=== PATIENT | female | born 1930 | race Caucasian/White ===

== ENCOUNTER 2019-03-24 12:48 | Inpatient (IN) | payer MEDICARE, BC ==
[~2019-03-24] VITALS: Ht 157.5 cm; Wt 57.2 kg
--- NOTE | 2019-03-24 13:00 | NUR ---
patient BIBRA came in due to altered than usual. On room air, breathing evenly and unlabored. Kept comfortable, will continue to monitor accordingly.
[2019-03-24 13:18] LABS: BASOPHILS # (AUTO) 0.1 /CMM (0.0-0.2); BASOPHILS % (AUTO) 0.8 % (0.0-2.0); EOSINOPHILS % (AUTO) 0.8 % (0.0-6.0); HEMATOCRIT 39 % (33-45); HEMOGLOBIN 12.9 g/dL (11.5-14.8); LYMPHOCYTES # (AUTO) 1.7 /CMM (0.8-4.8); LYMPHOCYTES % (AUTO) 15.7 % (20.0-44.0); MEAN CORPUSCULAR HGB CONC 33 g/dl (31.0-36.0); MEAN CORPUSCULAR VOLUME 95 fL (82-100); MONOCYTES # (AUTO) 0.7 /CMM (0.1-1.30); MONOCYTES % (AUTO) 6.3 % (2.0-12.0); NEUTROPHILS # (AUTO) 8.5 /CMM (1.8-8.9); NEUTROPHILS % (AUTO) 76.4 % (43.0-81.0); PLATELET COUNT (AUTO) 316 /CMM (150-450); RED BLOOD CELL COUNT(AUTO) 4.08 MIL/uL (4.0-5.2); WHITE BLOOD COUNT (AUTO) 11.1 K/uL (4.3-11.0)
[2019-03-24 13:23] LABS: CALCIUM, SERUM 9.5 mg/dL (8.5-10.1); CARBON DIOXIDE 31 mmol/L (21-32); CHLORIDE 103 mmol/L (98-107); CREATININE 1.2 mg/dL (0.6-1.3); GLUCOSE 111 mg/dL (74-106); POTASSIUM 3.5 mmol/L (3.5-5.1); SODIUM SERUM 142 mmol/L (136-145); UREA NITROGEN, BLOOD 27 mg/dL (7-18)
[2019-03-24 13:30] LABS: ALANINE AMINOTRANSFERASE 18 U/L (12-78); ALBUMIN 3.2 g/dL (3.4-5.0); ALKALINE PHOSPHATASE 109 U/L (46-116); ASPARTATE AMINOTRANSFERASE 19 U/L (15-37); BILIRUBIN,DIRECT 0.2 mg/dL (0.0-0.2); BILIRUBIN,TOTAL 0.7 mg/dL (0.2-1.0); TOTAL PROTEIN, SERUM 7.2 g/dL (6.4-8.2)
[2019-03-24 13:31] LABS: ACETAMINOPHEN 0 ug/ml (10-30); ALCOHOL, BLOOD < 3 mg/dL (0-0); SALICYLATE 0.9 mg/dL (2.8-20.0)
[2019-03-24] MEDS ORDERED: METO25TA6 PO (13:48)
[2019-03-24] MEDS ORDERED: AMLO5TAB9 PO (13:48)
[2019-03-24] MEDS ORDERED: DOCU100C36 PO (13:48)
[2019-03-24] MEDS ORDERED: ASPI-1169 PO (13:48)
[2019-03-24] MEDS ORDERED: LEVO75TA7 PO (13:48)
[2019-03-24] MEDS ORDERED: RANI150T8 PO (13:48)
[2019-03-24] MEDS ORDERED: CLON0.1T PO (13:48)
--- NOTE | 2019-03-24 14:03 | NUR ---
urine collected and sent to lab
[2019-03-24 14:09] LABS: BILIRUBIN,URINE SMALL (NEGATIVE); BLOOD, URINE Trace-intact Ery/uL (NEGATIVE); COLOR,URINE Yellow (YELLOW); KETONES,URINE Trace (NEGATIVE); LEUKOCYTE ESTERASE ,URINE Large (NEGATIVE); NITRITE, URINE Negative (NEGATIVE); PROTEIN,URINE 100 mg/dl (NEGATIVE); UGLUCOSE Negative (NEGATIVE)
[2019-03-24 14:10] LABS: THYROID STIMULATING HORMONE 3.114 uIU/mL (0.358-3.74)
[2019-03-24 14:10] LABS: APPEARANCE,URINE CLOUDY (CLEAR)
[2019-03-24 14:11] LABS: BACTERIA,URINE 2+ /HPF (None Seen); SQUAMOUS EPITHELIAL CELL,UR Moderate /HPF (None Seen); WBC,URINE 21-50 /HPF (0-3)
--- NOTE | 2019-03-24 14:18 | NUR ---
CALLED [facility], PAGED JEAN BENNETT
[2019-03-24] MEDS ORDERED: CEFTRIAXONE 1 G in IV D5W 50 ML IV STA (14:24)
[2019-03-24] MEDS ORDERED: CEFTRIAXONE 1GM BAG (ER ONLY) 50 ML IV ONE (14:37)
[2019-03-24] MEDS ORDERED: IV NS 0.9% 1,000 ML IV PRN (15:39)
--- NOTE | 2019-03-24 15:40 | NUR ---
report given to Elif CASTANON for deep.
--- NOTE | 2019-03-24 15:53 | NUR ---
wheeled patient to room 311-1 Liam ramos RN at bedside to assume care.
[2019-03-24 16:00] VITALS: BP 164/72
[2019-03-24] MEDS ORDERED: MAG HYDROX/AL HYDROX/SIMETH 30 ML UDC PO PRN (16:00)
[2019-03-24] MEDS ORDERED: MAGNESIUM HYDROXIDE 30 ML UDC PO PRN (16:00)
[2019-03-24] MEDS ORDERED: DOCUSATE SODIUM 100 MG CAPSULE PO PRN (16:00)
[2019-03-24] MEDS ORDERED: Z GUARD REMEDY 2 OZ OINT TP PRN (16:00)
[2019-03-24] MEDS ORDERED: ONDANSETRON HCL/PF 4 MG/2 ML VIAL IVP PRN (16:00)
[2019-03-24 16:30] VITALS: BP 164/79
[2019-03-24] MEDS: HYDROCODONE/APAP 5/325MG 1 EACH TABLET PO PRN (17:00)
[2019-03-24] MEDS ORDERED: METOPROLOL TARTRATE 25 MG TABLET PO SCH (17:00)
--- NOTE | 2019-03-24 19:42 | NUR ---
TELE/RN OPENING NOTES RECEIVED PATIENT IN BED, RESTING COMFORTABLY IN BED, RESPIRATIONS EVEN AND UNLABORED, SKIN WARM TO TOUCH. CAN RESPOND TO SIMPLE QUESTIONS, ABLE TO STATE NAME AND BIRTHDAY BUT NOT DATE. OBSERVE CALM AND COOPERATIVE, TO MONITOR ANY CHANGES WILL MONITOR. BED LOCKED, CALL LIGHTS WITHIN REACH.
--- NOTE | 2019-03-24 19:44 | NUR ---
TELE/RN NOTES IV ON LEFT AC RUNNING AND SITE W/ NO S/S OF INFILTRATION.
[2019-03-24 19:58] VITALS: BP 132/64
[2019-03-24 20:00] VITALS: BP 132/64
[2019-03-24] MEDS: FAMOTIDINE (20 MG) 20 MG TABLET PO SCH (20:43)
[2019-03-24] MEDS: ACETAMINOPHEN 325 MG TABLET PO PRN (21:23)
--- NOTE | 2019-03-24 21:30 | NUR ---
TELE/RN NOTES PATIENT AWAKE, ALERT X3, ABLE TO STATE NAME AND WHERE SHE IS. FAMILY AT BEDSIDE. REPORTED PAIN IN LEFT ANKLE, ICE PROVIDED IN SITE AND TYLENOL GIVEN WITH APPLE SAUCE. PUDDING REQUESTED. ABLE TO TOLERATE .
[2019-03-25] VITALS: BP 121/60
[2019-03-25 04:00] VITALS: BP_SYST 107; BP_SYST 171; BP_DIAS 67; BP_DIAS 76
[2019-03-25] MEDS: HYDROCODONE/APAP 5/325MG 1 EACH TABLET PO PRN ×3 (04:36→19:09)
--- NOTE | 2019-03-25 04:48 | NUR ---
TELE/RN NOTES PATIENT VITAL SIGNS SBP ELEVATED TO 170, REPORTED PAIN SEVERE, NEEDED NORCO 5-325 MG PO GIVEN WITH APPLE SAUCE WILL MONITOR RELIEF AND COMFORT.
[2019-03-25 06:37] LABS: CARBON DIOXIDE 30 mmol/L (21-32); CHLORIDE 104 mmol/L (98-107); CREATININE 0.8 mg/dL (0.6-1.3); GLUCOSE 117 mg/dL (74-106); MAGNESIUM 2.1 mg/dL (1.8-2.4); PHOSPHORUS 3.9 mg/dL (2.5-4.9); POTASSIUM 2.9 mmol/L (3.5-5.1); SODIUM SERUM 142 mmol/L (136-145); UREA NITROGEN, BLOOD 17 mg/dL (7-18)
[2019-03-25 06:43] LABS: BASOPHILS # (AUTO) 0.1 /CMM (0.0-0.2); EOSINOPHILS % (AUTO) 2.8 % (0.0-6.0); HEMATOCRIT 41 % (33-45); HEMOGLOBIN 13.5 g/dL (11.5-14.8); LYMPHOCYTES # (AUTO) 1.5 /CMM (0.8-4.8); LYMPHOCYTES % (AUTO) 18.9 % (20.0-44.0); MEAN CORPUSCULAR HGB CONC 33 g/dl (31.0-36.0); MEAN CORPUSCULAR VOLUME 95 fL (82-100); MONOCYTES # (AUTO) 0.6 /CMM (0.1-1.30); MONOCYTES % (AUTO) 7.2 % (2.0-12.0); NEUTROPHILS # (AUTO) 5.7 /CMM (1.8-8.9); NEUTROPHILS % (AUTO) 70.1 % (43.0-81.0); PLATELET COUNT (AUTO) 329 /CMM (150-450); RED BLOOD CELL COUNT(AUTO) 4.28 MIL/uL (4.0-5.2); WHITE BLOOD COUNT (AUTO) 8.1 K/uL (4.3-11.0)
--- NOTE | 2019-03-25 06:52 | NUR ---
311-1TELE/RN PATIENT SLEPT FEW HOURS, RESPIRATIONS EVEN AND UNLABORED, REPOSITONED AND TURNES, PAIN MEDIATION FIVEN NORCO 5-325 MG FOR SEVERE PAIN. REQUIRE EXTENSIVE ASSISTANCE FOR SAFEY, WILL MONITOR.
[2019-03-25 07:16] LABS: CHOLESTEROL 188 mg/dL (<200); HDL CHOLESTEROL 55 mg/dL (40-60); LDL 113 mg/dL (0-99); THYROID STIMULATING HORMONE 4.508 uIU/mL (0.358-3.74); TRIGLYCERIDES 102 mg/dL (30-150)
[2019-03-25 08:00] VITALS: BP 159/75
--- NOTE | 2019-03-25 08:00 | NUR ---
COASTAL TUG MATE NOTES PT IN BED, AWAKE, ALERT AND ORIENTED, NO COMPLAINT OF PAIN, RESPIRATIONS NORMAL, CAREGIVER AT BEDSIDE, KEPT COMFORTABLE IN BED, CALL LIGHT WITHIN REACH.
[2019-03-25] MEDS: POTASSIUM CHLORIDE 20 MEQ TAB.PRT.SR PO SCH ×4 (08:50→11:15)
[2019-03-25] MEDS: FAMOTIDINE (20 MG) 20 MG TABLET PO SCH ×2 (08:50→20:21)
[2019-03-25] MEDS: LEVOTHYROXINE SODIUM 75 MCG TABLET PO SCH (08:50)
[2019-03-25] MEDS ORDERED: ASPIRIN 81 MG TAB.CHEW PO SCH (09:00)
[2019-03-25] MEDS ORDERED: AMLODIPINE BESYLATE 5 MG TABLET PO SCH (09:00)
[2019-03-25] MEDS ORDERED: CLONIDINE HCL 0.1 MG TABLET PO SCH ×2 (09:00→11:30)
[2019-03-25] MEDS ORDERED: CLOPIDOGREL BISULFATE 75 MG TABLET PO SCH (09:00)
[2019-03-25] MEDS ORDERED: FAMOTIDINE (20 MG) 20 MG TABLET PO SCH (09:00)
[2019-03-25] MEDS: ENOXAPARIN SODIUM 40 MG/0.4 ML DISP.SYRIN SQ SCH (09:02)
--- NOTE | 2019-03-25 13:00 | NUR ---
RN MS NOTES PT IN BED, AWAKE, ALERT, AND VERBALLY RESPONSIVE, NOT IN DISTRESS, CAREGIVER AT BEDSIDE, PAIN MEDS GIVEN FOR PAIN MANAGEMENT, SEEN BY JEAN TOM AND DR. SHERIDAN, ALSO SEEN AND ASSESSED BY SPEECH THERAPIST AND PHYSICAL THERAPIST.
[2019-03-25] MEDS: AMLODIPINE BESYLATE 5 MG TABLET PO SCH (13:09)
--- NOTE | 2019-03-25 13:23 | NUR ---
RN MS NOTES LAST DOSE OF KDUR NON ADMIN, TIMED OUT FROM [facility]MN[facility], LAST DOSE REORDERED.
[2019-03-25] MEDS ORDERED: POTASSIUM CHLORIDE 20 MEQ TAB.PRT.SR PO SCH (14:00)
[2019-03-25] MEDS ORDERED: CEFTRIAXONE 1 G in IV D5W 50 ML IV SCH (16:00)
--- NOTE | 2019-03-25 19:00 | NUR ---
RN MS NOTES PT IN BED, AWAKE, ALERT AND ORIENTED, PAIN MEDS GIVEN FOR PAIN MANAGEMENT, TOLERATING CURRENT DIET WELL, IV FLUIDS INFUSING WELL, CALL LIGHT WITHIN REACH, KEPT CLEAN AND DRY, ALL NEEDS ATTENDED.
[2019-03-25 20:00] VITALS: BP 152/88
[2019-03-25] MEDS: METOPROLOL TARTRATE 25 MG TABLET PO SCH (20:21)
--- NOTE | 2019-03-25 20:31 | NUR ---
Left message to patient son requesting call call to discuss dc planning options. Spoke with caregiver Iniguez who was at bedside. Patient lives locally with her son Marcos in a two story home with her bedroom on the first floor. She ambulates with a walker and sometimes hand held assist. She has caregiver everyday for 10-12hr/day that provides assistance with adl's. Has adequate DME: walker,shower chair commode, raised toilet seat and wheelchair. She is currently on service with [facility] [phone]. Patient pcp is affiliated with [facility]. Addendum: 03/25/19 at 2030 by EBONIE GAO RN Amended: Links added.
[2019-03-26] VITALS: BP_SYST 148; BP_DIAS 57; BP_DIAS 63; BP_DIAS 78
[2019-03-26] MEDS: IV NS 0.9% 1,000 ML IV PRN ×2 (03:48→14:53)
[2019-03-26 04:00] VITALS: BP 148/78
[2019-03-26 06:28] LABS: BASOPHILS % (AUTO) 0.8 % (0.0-2.0); EOSINOPHILS % (AUTO) 3.7 % (0.0-6.0); HEMATOCRIT 40 % (33-45); HEMOGLOBIN 13.4 g/dL (11.5-14.8); LYMPHOCYTES # (AUTO) 1.8 /CMM (0.8-4.8); LYMPHOCYTES % (AUTO) 28.5 % (20.0-44.0); MEAN CORPUSCULAR HGB CONC 34 g/dl (31.0-36.0); MEAN CORPUSCULAR VOLUME 94 fL (82-100); MONOCYTES # (AUTO) 0.5 /CMM (0.1-1.30); MONOCYTES % (AUTO) 7.4 % (2.0-12.0); NEUTROPHILS # (AUTO) 3.7 /CMM (1.8-8.9); NEUTROPHILS % (AUTO) 59.6 % (43.0-81.0); PLATELET COUNT (AUTO) 313 /CMM (150-450); WHITE BLOOD COUNT (AUTO) 6.2 K/uL (4.3-11.0)
--- NOTE | 2019-03-26 06:32 | NUR ---
RN NOTES PATIENT IS ALERT AND AWAKE, STABLE ON ROOM AIR, COMPLAINING OF LEFT KNEE PAIN, NO FRACTURE PER XRAY, RECEIVED NORCO WITH ADEQUATE RELIEF, IVF AT 100 ML/HR, NEURO CONSULT AND ST EVAL DONE, FOR PT/OT, PAIN MANAGEMENT
[2019-03-26 06:51] LABS: ALANINE AMINOTRANSFERASE 24 U/L (12-78); ALKALINE PHOSPHATASE 102 U/L (46-116); ASPARTATE AMINOTRANSFERASE 19 U/L (15-37); BILIRUBIN,TOTAL 0.5 mg/dL (0.2-1.0); CALCIUM, SERUM 8.8 mg/dL (8.5-10.1); CARBON DIOXIDE 22 mmol/L (21-32); CHLORIDE 106 mmol/L (98-107); CREATININE 0.7 mg/dL (0.6-1.3); GLUCOSE 98 mg/dL (74-106); MAGNESIUM 1.8 mg/dL (1.8-2.4); PHOSPHORUS 2.8 mg/dL (2.5-4.9); POTASSIUM 3.6 mmol/L (3.5-5.1); SODIUM SERUM 142 mmol/L (136-145); TOTAL PROTEIN, SERUM 6.9 g/dL (6.4-8.2); UREA NITROGEN, BLOOD 14 mg/dL (7-18)
--- NOTE | 2019-03-26 07:27 | NUR ---
TELE/RN OPENING NOTE PATIENT IN BED IN STABLE CONDITION. A/O X 1-2. NO SIGNS OF ACUTE DISTRESS. NO COMPLAIN OF PAIN OR DISCOMFORT. ON TELE MONITOR NOTED WITH SR WITH RATE OF 74. ALL NEEDS ATTENDED TO. CALL LIGHT WITHIN REACH. WILL CONTINUE TO MONITOR TO ENSURE SAFETY.
[2019-03-26 08:00] VITALS: BP 174/91
[2019-03-26] MEDS: ENOXAPARIN SODIUM 40 MG/0.4 ML DISP.SYRIN SQ SCH (08:48)
[2019-03-26] MEDS: LEVOTHYROXINE SODIUM 75 MCG TABLET PO SCH (08:48)
[2019-03-26] MEDS: CLOPIDOGREL BISULFATE 75 MG TABLET PO SCH (08:48)
[2019-03-26] MEDS: ASPIRIN 81 MG TAB.CHEW PO SCH (08:48)
[2019-03-26] MEDS: FAMOTIDINE (20 MG) 20 MG TABLET PO SCH ×2 (08:48→20:36)
[2019-03-26] MEDS: POTASSIUM CHLORIDE 20 MEQ TAB.PRT.SR PO SCH ×3 (08:48→11:47)
[2019-03-26] MEDS: METOPROLOL TARTRATE 25 MG TABLET PO SCH ×2 (08:49→20:36)
[2019-03-26] MEDS: AMLODIPINE BESYLATE 5 MG TABLET PO SCH (08:49)
[2019-03-26] MEDS ORDERED: VALSARTAN 80 MG TABLET PO SCH (09:00)
[2019-03-26] MEDS: MEROPENEM 500 MG in IV NS 0.9% 50 ML IV SCH ×2 (12:16→20:35)
--- NOTE | 2019-03-26 14:12 | NUR ---
MS/RN BISACODYL PER RECTUM HELD SECONDARY TO PER PATIENT CAREGIVER, PATIENT HAD B.M. AFTER SEEN BY NEGRO PENA AND NO NEED OF SUPPOSITORY AT THIS TIME.
[2019-03-26] MEDS ORDERED: BISACODYL SUPP (10 MG) 10 MG/SUPP.RECT SUPP.RECT RC ONE (14:30)
[2019-03-26 16:00] VITALS: BP 154/72
[2019-03-26] MEDS: DOCUSATE SODIUM 100 MG CAPSULE PO SCH (16:03)
[2019-03-26] MEDS: HYDROCODONE/APAP 5/325MG 1 EACH TABLET PO PRN (16:04)
--- NOTE | 2019-03-26 18:04 | NUR ---
MS/RN CLOSING NOTE PATIENT IN BED IN STABLE CONDITION. A/O X 2-3. NO SIGNS OF ACUTE DISTRESS. NO COMPLAIN OF PAIN OR DISCOMFORT. ALL NEEDS ATTENDED TO. FAMILY CAREGIVER AT BEDSIDE. CALL LIGHT WITHIN REACH. WILL ENDORSE TO NEXT SHIFT FOR CONTINUITY OF CARE.
--- NOTE | 2019-03-26 19:11 | NUR ---
MS RN OPENING NOTES: RECEIVED PATIENT RESTING COMFORTABLY IN BED, ALERT, ORIENTED X3. NOT IN RESPIRATORY DISTRESS. DIRECTOR OF MEDICAL EDUCATION AT THE BEDSIDE. BED ALARM ON.
[2019-03-26 20:00] VITALS: BP 158/86
[2019-03-26] MEDS ORDERED: ATORVASTATIN 40 MG TABLET PO SCH (22:00)
[2019-03-27] MEDS: IV NS 0.9% 1,000 ML IV PRN (01:10)
[2019-03-27] MEDS: HYDROCODONE/APAP 5/325MG 1 EACH TABLET PO PRN (01:47)
[2019-03-27] MEDS: MEROPENEM 500 MG in IV NS 0.9% 50 ML IV SCH ×3 (04:18→20:53)
--- NOTE | 2019-03-27 06:38 | NUR ---
MS RN CLOSING NOTES: PATIENT IS RESTING COMFORTABLY IN BED. HAD BM THIS MORNING. INCONTINENT. KEPT PATIENT CLEAN AND DRY. MEDICATED WITH NORCO 1TAB PO X1, EFFECTIVE. NO ACUTE EVENTS OVERNIGHT. AFEBRILE. HEMODYNAMICS AND RESPIRATORY STATUS ARE STABLE. CONFUSED. BED ALARM ON AT ALL TIMES. BED IN LOW AND LOCKED POSITION.
[2019-03-27 06:42] LABS: BASOPHILS # (AUTO) 0.1 /CMM (0.0-0.2); BASOPHILS % (AUTO) 0.7 % (0.0-2.0); EOSINOPHILS % (AUTO) 2.8 % (0.0-6.0); HEMATOCRIT 41 % (33-45); HEMOGLOBIN 13.7 g/dL (11.5-14.8); LYMPHOCYTES # (AUTO) 1.7 /CMM (0.8-4.8); LYMPHOCYTES % (AUTO) 17.4 % (20.0-44.0); MEAN CORPUSCULAR HGB CONC 34 g/dl (31.0-36.0); MEAN CORPUSCULAR VOLUME 94 fL (82-100); MONOCYTES # (AUTO) 0.5 /CMM (0.1-1.30); MONOCYTES % (AUTO) 5.7 % (2.0-12.0); NEUTROPHILS # (AUTO) 7.1 /CMM (1.8-8.9); NEUTROPHILS % (AUTO) 73.4 % (43.0-81.0); PLATELET COUNT (AUTO) 354 /CMM (150-450); RED BLOOD CELL COUNT(AUTO) 4.35 MIL/uL (4.0-5.2); WHITE BLOOD COUNT (AUTO) 9.6 K/uL (4.3-11.0)
[2019-03-27 06:43] LABS: ALANINE AMINOTRANSFERASE 23 U/L (12-78); ALBUMIN 3.3 g/dL (3.4-5.0); ALKALINE PHOSPHATASE 110 U/L (46-116); ASPARTATE AMINOTRANSFERASE 15 U/L (15-37); BILIRUBIN,TOTAL 0.5 mg/dL (0.2-1.0); CALCIUM, SERUM 9.3 mg/dL (8.5-10.1); CARBON DIOXIDE 24 mmol/L (21-32); CHLORIDE 103 mmol/L (98-107); CREATININE 0.8 mg/dL (0.6-1.3); GLUCOSE 109 mg/dL (74-106); MAGNESIUM 1.9 mg/dL (1.8-2.4); PHOSPHORUS 2.8 mg/dL (2.5-4.9); POTASSIUM 3.6 mmol/L (3.5-5.1); SODIUM SERUM 141 mmol/L (136-145); TOTAL PROTEIN, SERUM 7.6 g/dL (6.4-8.2); UREA NITROGEN, BLOOD 11 mg/dL (7-18)
--- NOTE | 2019-03-27 07:36 | NUR ---
MS/RN OPENING NOTE PATIENT IN BED IN STABLE CONDITION. A/O X 2 WITH EPISODES OF CONFUSION AND FORGETFULNESS. NO SIGNS OF ACUTE DISTRESS. NO COMPLAIN OF PAIN OR DISCOMFORT. ALL NEEDS ATTENDED TO AT THIS TIME. CALL LIGHT WITHIN REACH. WILL CONTINUE TO MONITOR TO ENSURE SAFETY.
[2019-03-27 08:00] VITALS: BP 173/82
[2019-03-27] MEDS: ENOXAPARIN SODIUM 40 MG/0.4 ML DISP.SYRIN SQ SCH (08:21)
[2019-03-27] MEDS: AMLODIPINE BESYLATE 5 MG TABLET PO SCH (08:22)
[2019-03-27] MEDS: LEVOTHYROXINE SODIUM 75 MCG TABLET PO SCH (08:22)
[2019-03-27] MEDS: DOCUSATE SODIUM 100 MG CAPSULE PO SCH ×2 (08:22→16:12)
[2019-03-27] MEDS: CLOPIDOGREL BISULFATE 75 MG TABLET PO SCH (08:22)
[2019-03-27] MEDS: ASPIRIN 81 MG TAB.CHEW PO SCH (08:22)
[2019-03-27] MEDS: FAMOTIDINE (20 MG) 20 MG TABLET PO SCH ×2 (08:22→20:52)
[2019-03-27] MEDS: METOPROLOL TARTRATE 25 MG TABLET PO SCH ×2 (08:22→20:53)
[2019-03-27] MEDS: VALSARTAN 80 MG TABLET PO SCH (08:23)
[2019-03-27] MEDS ORDERED: POLYETHYLENE GLYCOL 3350 17 GM POWD.PACK PO PRN (09:00)
[2019-03-27 09:18] LABS: EOSINOPHILS % (MANUAL) 1 % (0-4); LYMPHOCYTES % (MANUAL) 15 % (16-48); MONOCYTES % (MANUAL) 4 % (0-11.0); NEUTROPHILS % (MANUAL) 80 (42-76)
[2019-03-27] MEDS ORDERED: NA PHOS,M-B/NA PHOS,DI-BA 1 EA ENEMA RC ONE (12:00)
[2019-03-27 16:00] VITALS: BP 147/73
[2019-03-27] MEDS: ACETAMINOPHEN 325 MG TABLET PO PRN (16:12)
--- NOTE | 2019-03-27 16:23 | NUR ---
MS/RN POST FLEET ENEMA X 1, PATIENT NOTED WITH SMALL B.M. MOSTLY LIQUID. PAGED ANIMAL CYTOLOGIST JEAN BENNETT AT THIS TIME TO NOTIFY, AWAITING FOR CALL BACK.
--- NOTE | 2019-03-27 16:35 | NUR ---
MS/RN RECEIVED CALL BACK FROM TAPE COATER JEAN Tsang AND NOTIFIED PATIENT HAD SMALL BM LIQUID POST FLEET ENEMA, AND STILL NOTED WITH DISTENDED ABDOMEN PER NEGRO PENA. NNO AT THIS TIME, CONTINUE TO MONITOR. PATIENT AND CAREGIVER AWARE.
--- NOTE | 2019-03-27 18:18 | NUR ---
MS/RN CLOSING NOTE PATIENT IN BED IN STABLE CONDITION. A/O X 2 WITH EPISODES OF FORGETFULNESS. NO SIGNS OF ACUTE DISTRESS. NO COMPLAIN OF PAIN OR DISCOMFORT. ON CONTACT ISOLATION SECONDARY TO ESBL/ECOLI POSITIVE OF URINE. ALL NEEDS ATTENDED TO AT THIS TIME. CALL LIGHT WITHIN REACH. WILL ENDORSE TO NEXT SHIFT FOR CONTINUITY OF CARE.
--- NOTE | 2019-03-27 19:57 | NUR ---
MS RN NOTES RECEIVED PATIENT AWAKE IN BED WITH NO DISTRESS NOTED. CALL LIGHT WITHIN REACH. NO C/O PAIN OR DISCOMFORT. PERIPHERAL LINE SALINE LOCKED, INTACT AND PATENT. CONTACT ISOLATION OBSERVED AND MAINTAINED. BED IN LOW LOCK SETTING. BED ALARM ON AND FUNCTIONING PROPERLY. ALL BELONGINGS KEPT NEAR BEDSIDE. WILL CONTINUE TO MONITOR.
[2019-03-27 20:00] VITALS: BP 130/77
[2019-03-28] MEDS: MEROPENEM 500 MG in IV NS 0.9% 50 ML IV SCH ×3 (05:10→20:51)
--- NOTE | 2019-03-28 06:48 | NUR ---
MS RN NOTES PATIENT ASLEEP IN BED WITH NO DISTRESS NOTED. CALL LIGHT WITHIN REACH. NO C/O PAIN OR DISCOMFORT. PERIPHERAL LINE REMAINS INTACT AND PATENT. ALL DUE MEDS GIVEN ORDERED WITH NO ASE. CONTACT ISOLATION OBSERVED AND MAINTAINED AT ALL TIMES. BED IN LOW LOCK SETTING. BED ALARM ON AND FUNCTIONING PROPERLY. ALL BELONGINGS KEPT NEAR BEDSIDE. WILL CONTINUE TO MONITOR.
[2019-03-28 07:01] LABS: BASOPHILS % (AUTO) 0.6 % (0.0-2.0); HEMATOCRIT 39 % (33-45); HEMOGLOBIN 13.2 g/dL (11.5-14.8); LYMPHOCYTES # (AUTO) 1.5 /CMM (0.8-4.8); LYMPHOCYTES % (AUTO) 22.9 % (20.0-44.0); MEAN CORPUSCULAR HGB CONC 34 g/dl (31.0-36.0); MEAN CORPUSCULAR VOLUME 94 fL (82-100); MONOCYTES # (AUTO) 0.5 /CMM (0.1-1.30); MONOCYTES % (AUTO) 8.3 % (2.0-12.0); NEUTROPHILS # (AUTO) 4.3 /CMM (1.8-8.9); NEUTROPHILS % (AUTO) 65.2 % (43.0-81.0); PLATELET COUNT (AUTO) 348 /CMM (150-450); RED BLOOD CELL COUNT(AUTO) 4.18 MIL/uL (4.0-5.2); WHITE BLOOD COUNT (AUTO) 6.5 K/uL (4.3-11.0)
[2019-03-28 07:14] LABS: CALCIUM, SERUM 9.1 mg/dL (8.5-10.1); CARBON DIOXIDE 25 mmol/L (21-32); CHLORIDE 103 mmol/L (98-107); CREATININE 0.7 mg/dL (0.6-1.3); GLUCOSE 111 mg/dL (74-106); POTASSIUM 3.4 mmol/L (3.5-5.1); SODIUM SERUM 140 mmol/L (136-145); UREA NITROGEN, BLOOD 13 mg/dL (7-18)
[2019-03-28 08:00] VITALS: BP 147/80
[2019-03-28] MEDS: DOCUSATE SODIUM 100 MG CAPSULE PO SCH ×2 (08:29→16:51)
[2019-03-28] MEDS: VALSARTAN 80 MG TABLET PO SCH (08:30)
[2019-03-28] MEDS: LEVOTHYROXINE SODIUM 75 MCG TABLET PO SCH (08:30)
[2019-03-28] MEDS: FAMOTIDINE (20 MG) 20 MG TABLET PO SCH ×2 (08:31→20:54)
[2019-03-28] MEDS: ASPIRIN 81 MG TAB.CHEW PO SCH (08:31)
[2019-03-28] MEDS: AMLODIPINE BESYLATE 5 MG TABLET PO SCH (08:31)
[2019-03-28] MEDS: METOPROLOL TARTRATE 25 MG TABLET PO SCH ×2 (08:31→20:54)
[2019-03-28] MEDS: ENOXAPARIN SODIUM 40 MG/0.4 ML DISP.SYRIN SQ SCH (08:32)
[2019-03-28] MEDS: POTASSIUM CHLORIDE 20 MEQ TAB.PRT.SR PO SCH ×2 (09:18→11:04)
[2019-03-28] MEDS: HYDROCODONE/APAP 5/325MG 1 EACH TABLET PO PRN (10:56)
[2019-03-28] MEDS: POLYETHYLENE GLYCOL 3350 17 GM POWD.PACK PO SCH (12:57)
[2019-03-28 16:00] VITALS: BP 123/72
--- NOTE | 2019-03-28 18:28 | NUR ---
PATIENT IN BED IN STABLE CONDITION. A/O X 2 , FORGETFULNESS. NO SIGNS OF ACUTE DISTRESS. NO COMPLAIN OF PAIN OR DISCOMFORT AT THIS TIME. ON CONTACT ISOLATION SECONDARY TO ESBL/ECOLI POSITIVE OF URINE. ALL NEEDS ATTENDED. PATIENT KEPT CLEAN AND DRY. DITCHER AT BEDSIDE.CALL LIGHT WITHIN REACH.SAFETY MEASURES IMPLEMENTED. WILL ENDORSE TO NEXT SHIFT FOR CONTINUITY OF CARE.
[2019-03-28 20:00] VITALS: BP 139/70
--- NOTE | 2019-03-28 20:00 | NUR ---
pt in bed, comfortable resting, denies any pain, iv intact, tko, on contact isolation for ESBL urine. skin intact, all needs attended. no complains will continue to monitor.vss,afebrile
--- NOTE | 2019-03-28 22:30 | NUR ---
report recieved from lilian hcin. pt seen in bed, pt denies any pain, iv intact. on contact isolation for ESBL urine. denies complaints or needs at this time. will continue to monitor.vss upon review.
[2019-03-29] MEDS: MEROPENEM 500 MG in IV NS 0.9% 50 ML IV SCH ×3 (04:08→21:29)
--- NOTE | 2019-03-29 06:30 | NUR ---
RN PM CLOSING NOTE PATIENT IN BED IN STABLE CONDITION. AWAKE A/O X 2 , FORGETFUL. NO SIGNS OF ACUTE DISTRESS. NO COMPLAIN OF PAIN OR DISCOMFORT AT THIS TIME. STILL ON CONTACT ISOLATION SECONDARY TO ESBL POSITIVE OF URINE. ALL NEEDS ATTENDED. PATIENT KEPT CLEAN AND DRY.CALL LIGHT WITHIN REACH. SAFETY MEASURES IN PLACE. WILL ENDORSE TO NEXT SHIFT FOR CONTINUITY OF CARE.
[2019-03-29 08:00] VITALS: BP 159/90
--- NOTE | 2019-03-29 08:00 | NUR ---
patient complains of pain in left knee and ankle. Pain medication administered. Patient will have CT ankle and knee
[2019-03-29] MEDS: POLYETHYLENE GLYCOL 3350 17 GM POWD.PACK PO SCH (09:00)
[2019-03-29] MEDS: DOCUSATE SODIUM 100 MG CAPSULE PO SCH ×2 (09:04→17:00)
[2019-03-29] MEDS: ASPIRIN 81 MG TAB.CHEW PO SCH (09:04)
[2019-03-29] MEDS: METOPROLOL TARTRATE 25 MG TABLET PO SCH ×2 (09:04→21:29)
[2019-03-29] MEDS: FAMOTIDINE (20 MG) 20 MG TABLET PO SCH ×2 (09:05→21:29)
[2019-03-29] MEDS: VALSARTAN 80 MG TABLET PO SCH (09:05)
[2019-03-29] MEDS: LEVOTHYROXINE SODIUM 75 MCG TABLET PO SCH (09:05)
[2019-03-29] MEDS: AMLODIPINE BESYLATE 5 MG TABLET PO SCH (09:05)
[2019-03-29] MEDS: ENOXAPARIN SODIUM 40 MG/0.4 ML DISP.SYRIN SQ SCH (09:34)
[2019-03-29] MEDS: HYDROCODONE/APAP 5/325MG 1 EACH TABLET PO PRN ×2 (09:54→16:15)
[2019-03-29 16:00] VITALS: BP 137/86
--- NOTE | 2019-03-29 19:07 | NUR ---
PATIENT IN BED AND REMAIN IN STABLE CONDITION. A/O X 2 , FORGETFUL. NO SIGNS OF ACUTE DISTRESS. NO COMPLAIN OF PAIN OR DISCOMFORT AT THIS TIME. ON CONTACT ISOLATION SECONDARY TO ESBL/ECOLI POSITIVE OF URINE. ALL NEEDS ATTENDED. PATIENT KEPT CLEAN AND DRY. SURFACE PLATE INSPECTOR AT BEDSIDE.CALL LIGHT WITHIN REACH.SAFETY MEASURES IMPLEMENTED. WILL ENDORSE TO NEXT SHIFT FOR CONTINUITY OF CARE.
--- NOTE | 2019-03-29 19:10 | NUR ---
MS RN NOTE RECEIVED PT IN STABLE CONDITION A/O X1-2. CURRENTLY RESTING IN BED, EASILY AROUSABLE WHEN NAME IS CALLED. NO SIGNS OF SOB OR DISTRESS, NO C/O PAIN. IV IN LFA IN PLACE S/L. AL CURRENT NEEDS ATTENDED TO. BED LOW, LOCKED, UPPER RAILS UP, AND CALL LIGHT WITHIN RANGE. WILL CONT. TO MONITOR.
[2019-03-29 20:00] VITALS: BP 137/75
[2019-03-29 20:57] VITALS: BP 137/75
[2019-03-30] MEDS: MEROPENEM 500 MG in IV NS 0.9% 50 ML IV SCH ×2 (04:21→11:58)
[2019-03-30] MEDS: HYDROCODONE/APAP 5/325MG 1 EACH TABLET PO PRN ×2 (05:31→11:58)
--- NOTE | 2019-03-30 06:26 | NUR ---
MS RN NOTE PT IN STABLE CONDITION A/O X1-2. CURRENTLY RESTING IN BED, EASILY AROUSABLE WHEN NAME IS CALLED. NO SIGNS OF SOB OR DISTRESS, NO C/O PAIN. IV IN L HAND IN PLACE S/L. ALL CURRENT NEEDS ATTENDED TO. BED LOW, LOCKED, UPPER RAILS UP, PT REPOSITIONED PER PROTOCOL, AND CALL LIGHT WITHIN RANGE. WILL CONT. TO MONITOR AND ENDORSE TO NEXT SHIFT FOR SHAWN.
[2019-03-30 06:59] LABS: BASOPHILS # (AUTO) 0.1 /CMM (0.0-0.2); BASOPHILS % (AUTO) 1.2 % (0.0-2.0); EOSINOPHILS % (AUTO) 3.7 % (0.0-6.0); HEMATOCRIT 36 % (33-45); HEMOGLOBIN 12.2 g/dL (11.5-14.8); LYMPHOCYTES # (AUTO) 2.2 /CMM (0.8-4.8); LYMPHOCYTES % (AUTO) 31.8 % (20.0-44.0); MEAN CORPUSCULAR HGB CONC 34 g/dl (31.0-36.0); MEAN CORPUSCULAR VOLUME 94 fL (82-100); MONOCYTES # (AUTO) 0.6 /CMM (0.1-1.30); MONOCYTES % (AUTO) 9.2 % (2.0-12.0); NEUTROPHILS # (AUTO) 3.8 /CMM (1.8-8.9); NEUTROPHILS % (AUTO) 54.1 % (43.0-81.0); PLATELET COUNT (AUTO) 342 /CMM (150-450); RED BLOOD CELL COUNT(AUTO) 3.88 MIL/uL (4.0-5.2); WHITE BLOOD COUNT (AUTO) 6.9 K/uL (4.3-11.0)
[2019-03-30 07:15] LABS: CALCIUM, SERUM 8.5 mg/dL (8.5-10.1); CARBON DIOXIDE 28 mmol/L (21-32); CHLORIDE 105 mmol/L (98-107); CREATININE 0.7 mg/dL (0.6-1.3); GLUCOSE 94 mg/dL (74-106); POTASSIUM 3.7 mmol/L (3.5-5.1); SODIUM SERUM 142 mmol/L (136-145); UREA NITROGEN, BLOOD 15 mg/dL (7-18)
--- NOTE | 2019-03-30 07:30 | NUR ---
MS RN INITIAL NOTES RECEIVED PT IN BED, ASLEEP BUT EASILY AROUSABLE. PT ON ROOM AIR. O2 SAT WNL. NO LABORED BREATHING NOTED. R HAND IV SITE PATENT/FLUSHED. NO S/SX OF INFILTRATION. BOTH LOWER EXTREMITIES ELEVATED. BED IN LOCKED/LOWEST POSITION. CALL LIGHT IN REACH. WILL CONT TO MONITOR.
[2019-03-30 08:00] VITALS: BP 144/64
[2019-03-30] MEDS: POLYETHYLENE GLYCOL 3350 17 GM POWD.PACK PO SCH ×2 (09:00→09:06)
[2019-03-30] MEDS: DOCUSATE SODIUM 100 MG CAPSULE PO SCH ×2 (09:00→09:07)
[2019-03-30] MEDS: METOPROLOL TARTRATE 25 MG TABLET PO SCH (09:06)
[2019-03-30] MEDS: AMLODIPINE BESYLATE 5 MG TABLET PO SCH ×2 (09:07→09:20)
[2019-03-30] MEDS: FAMOTIDINE (20 MG) 20 MG TABLET PO SCH (09:07)
[2019-03-30] MEDS: VALSARTAN 80 MG TABLET PO SCH (09:07)
[2019-03-30] MEDS: ENOXAPARIN SODIUM 40 MG/0.4 ML DISP.SYRIN SQ SCH (09:12)
[2019-03-30] MEDS: LEVOTHYROXINE SODIUM 75 MCG TABLET PO SCH (09:12)
[2019-03-30] MEDS: ASPIRIN 81 MG TAB.CHEW PO SCH (09:12)
[2019-03-30 09:20] VITALS: BP 144/64
[2019-03-30 10:01] LABS: EOSINOPHILS % (MANUAL) 1 % (0-4); LYMPHOCYTES % (MANUAL) 33 % (16-48); MONOCYTES % (MANUAL) 10 % (0-11.0); NEUTROPHILS % (MANUAL) 56 (42-76)
[2019-03-30] MEDS ORDERED: NITR100C15 PO (12:20)
[2019-03-30] MEDS ORDERED: VALS80TA2 PO (12:20)
[2019-03-30] MEDS ORDERED: DOCU-270 PO (12:20)
--- NOTE | 2019-03-30 14:28 | NUR ---
MS RN NOTES REPORT GIVEN TO DIXON CASTANON AT [facility].
== END 2019-03-30 15:50 | disposition home health service (06) | DRG 682 ==
LOC: ER 12:55 → TELE 14:05 → MED 03-25 09:33 → TELE 03-25 21:27 → MED 03-26 08:32
PROVIDERS: ADMIT Nurse Practitioner Acute Care; ATTEND Nurse Practitioner Acute Care
DX: N17.0 Acute kidney failure with tubular necrosis (principal); G93.41 Metabolic encephalopathy; N39.0 Urinary tract infection, site not specified; G45.9 Transient cerebral ischemic attack, unspecified; E44.1 Mild protein-calorie malnutrition; S82.832A Other fracture of upper and lower end of left fibula, initial encounter for closed fracture; E86.0 Dehydration; E03.9 Hypothyroidism, unspecified; F03.90 Unspecified dementia, unspecified severity, without behavioral disturbance, psychotic disturbance, mood disturbance, and anxiety; I10 Essential (primary) hypertension; Z86.73 Personal history of transient ischemic attack (TIA), and cerebral infarction without residual deficits; Z79.899 Other long term (current) drug therapy; Z79.82 Long term (current) use of aspirin; W19.XXXA Unspecified fall, initial encounter; Y92.009 Unspecified place in unspecified non-institutional (private) residence as the place of occurrence of the external cause; Z82.49 Family history of ischemic heart disease and other diseases of the circulatory system; Z90.710 Acquired absence of both cervix and uterus; Z79.890 Hormone replacement therapy; K59.00 Constipation, unspecified; E87.6 Hypokalemia; B96.20 Unspecified Escherichia coli [E. coli] as the cause of diseases classified elsewhere; M11.20 Other chondrocalcinosis, unspecified site; I67.2 Cerebral atherosclerosis
CPT/HCPCS: 36415; 70450-TC; 71045-TC; 73564-TC; 73610-TC; 73700-TC; 74018; 80048-TC; 80053-TC; 80061-TC; 80076-TC; 80305; 81000-TC; 82962-TC; 83735-TC; 84100-TC; 84443-TC; 84484-TC; 85025-TC; 85730-TC; 87081-TC; 87086-TC; 87186-TC; 92526; 92611-TC; 93307-TC; 93880-TC; 97110-TC; 97112-TC; 97116-TC; 97530-TC; A4216; G0378; G0480; J0696; J1650; J2185; J7030; J7060